=== PATIENT | male | born 1995 | race African-American/Black ===

== ENCOUNTER 2018-01-27 03:20 | Emergency (ER) | payer OTHER ==
[~2018-01-27] VITALS: Ht 172.7 cm; Wt 79.8 kg
[2018-01-27 03:20] VITALS: BP 119/60
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
== END 2018-01-27 03:55 | disposition home or self-care (01) ==
LOC: EDBD 03:20 → ER 03:20
DX: K60.2 Anal fissure, unspecified (principal); Z88.1 Allergy status to other antibiotic agents
CPT/HCPCS: 99283

== ENCOUNTER 2018-02-18 05:09 | Emergency (ER) | payer OTHER ==
[~2018-02-18] VITALS: Ht 172.7 cm; Wt 79.8 kg
[~2018-02-18 05:09] MED LIST: HYDR-79 PO; PRED20TA PO
[2018-02-18] MEDS ORDERED: HYDR-971 PO (05:45)
[2018-02-18] MEDS ORDERED: ACYC800T PO (05:45)
[2018-02-18] MEDS ORDERED: HYDR453.3 TP (05:46)
[2018-02-18] MEDS ORDERED: cefTRIAXone IM 250 MG VIAL IM ONE (06:00)
[2018-02-18] MEDS ORDERED: AZITHROMYCIN 250 MG TABLET. PO ONE (06:00)
--- NOTE | 2018-02-18 06:04 | ED.ADGEN ---
Past History Past Medical History: Bipolar, Schizophrenia Past Surgical History: No Surgical History Alcohol Use: Heavy Drug Use: None Adult General HPI HPI Patient is a 23 year old male who presents with possible STI. Patient is homosexual. He does partake and receptive anal intercourse. He presents to the ER today complaining of about 10-14 days of rectal pain. He was evaluated in this emergency department about 10 days earlier. He was diagnosed with a possible fissure. He was not treated for any infectious process at that time. Over the last week, he complains of persistent anal itching. He had onset of what he describes see very severe pain in the anal area over the last 24 hours. He also complains of some dysuria but no urethral discharge. Patient has not had a fever or chills. No nausea or vomiting. At last visit, he was referred to follow-up at [place] or at the health department but he has not done this. Review of Systems Review of Systems Constitutional: Denies fever or chills Eyes: Denies change in visual acuity, redness, or eye pain HENT: Denies nasal congestion or sore throat Respiratory: Denies cough or shortness of breath Cardiovascular: No additional information not addressed in HPI GI: Denies abdominal pain, nausea, vomiting, bloody stools or diarrhea : Denies dysuria or hematuria Musculoskeletal: Denies back pain or joint pain Integument: Denies rash or skin lesions Neurologic: Denies headache, focal weakness or sensory changes Endocrine: Denies polyuria or polydipsia All other systems were reviewed and found to be within normal limits, except as documented in this note. Current Medications Current Medications Current Medications Medications (Trade) Dose Ordered Sig/Angelica Start Time Stop Time Status Last Admin Dose Admin Azithromycin (Zithromax) 1,000 mg 1X ONCE 02/18/18 06:00 02/18/18 06:01 Ceftriaxone Sodium (Rocephin Im) 250 mg 1X ONCE 02/18/18 06:00 02/18/18 06:01 Allergies Allergies Allergies Coded Allergies Type Severity Reaction Last Updated Verified amoxicillin Allergy Unknown 01/27/18 Yes Physical Exam Physical Exam Constitutional: Well developed, well nourished, no acute distress, non-toxic appearance. HENT: Normocephalic, atraumatic, bilateral external ears normal, oropharynx moist Eyes: PERRLA, EOMI, conjunctiva normal Neck: Normal range of motion, no tenderness Lungs & Thorax: normal respiratory effort Abdomen: Bowel sounds normal, soft, no tenderness Skin: Warm, dry, no erythema, no rash. Extremities: normal ROM Neurologic: Alert and oriented X 3 Psychologic: Affect normal Exam of anus. Over the posterior aspect of the anus just inside at the midline is an area of excoriated skin with multiple clustered lesions that appear vesicular. There is a small fissure at the midline less than 0.5 cm that extends into the immediate subcutaneous tissue but no further. Current Patient Data Vital Signs Vital Signs Date Time Temp Pulse Resp B/P (MAP) Pulse Ox O2 Delivery O2 Flow Rate FiO2 02/18/18 05:40 98.8 82 18 99 Room Air EKG EKG [] Radiology/Procedures Radiology/Procedures [] Course & Med Decision Making Course & Med Decision Making Pertinent Labs and Imaging studies reviewed. (See chart for details) Patient is seen and examined in the emergency department. He has findings on his physical exam that are suspicious for herpes infection at the anus as well as a very small fissure. The patient has not been treated for sexually transmitted disease since onset of symptoms. This morning, we did collect a specimen for viral culture as well as gonorrhea and chlamydia. This was sent to the lab. The patient is empirically treated today with a gram of azithromycin and 250 mg of Rocephin IM. He is given a prescription for acyclovir for empiric treatment. He is provided some [place] for severe pain. He is also given a prescription for hydrocortisone cream to apply to the area. He is advised to refrain from sexual intercourse and to follow-up at [facility] or the health department for further testing and workup. Final Impression Final Impression Anal fissure Anal herpes infection Sexually transmitted disease Dragon Disclaimer Dragon Disclaimer This electronic medical record was generated, in whole or in part, using a voice recognition dictation system. NICOLE GRANADOS DO February 18, 2018 06:04
[2018-02-18 06:40] VITALS: BP 125/82
[2018-02-19 13:13] LABS: CHLAMYDIA PROBE Negative (Negative)
== END 2018-02-18 06:30 | disposition home or self-care (01) ==
LOC: ER 05:09
DX: K60.2 Anal fissure, unspecified (principal); B00.89 Other herpesviral infection; A64 Unspecified sexually transmitted disease; F10.20 Alcohol dependence, uncomplicated
CPT/HCPCS: 36415; 87491; 87591; 96372; 99284; J0456; J0696

== ENCOUNTER 2018-12-14 12:56 | Emergency (ER) | payer SELFPAY ==
[~2018-12-14] VITALS: Ht 172.7 cm; Wt 70.2 kg
[~2018-12-14 12:56] MED LIST changes: +ACYC800T PO; +HYDR-1179 PO; +HYDR-3165 PO; -HYDR-79 PO; +HYDR453.3 TP
[2018-12-14 14:13] LABS: BACTERIA,URINE 0 /HPF (0-FEW); BILIRUBIN,URINE NEG (NEG); CLARITY,URINE HAZY; COLOR,URINE AMBER; GLUCOSE,URINE NEG (NEG); NITRITE,URINE NEG (NEG); SQUAMOUS EPITHELIAL CELL,UR FEW /LPF; UROBILINOGEN,URINE 1 mg/dL (0.2 mg/dL); WBC,URINE RARE /HPF (0-4)
--- NOTE | 2018-12-14 14:30 | PHYS DOC ---
Past History Past Medical History: Asthma, Bipolar, Schizophrenia Past Surgical History: No Surgical History Alcohol Use: Rarely Drug Use: Marijuana Adult General Chief Complaint Chief Complaint: BLOOD IN URINE [facility] HPI Patient is a 23 year old male who presents with weighing of bloody urine. Patient complaining of one episode of bright red blood in his urination prior to arrival to ER. Patient denies abdominal pain, flank pain, penile discharge or concern for STD, recent injury, history of the same problem. Patient is homosexual with anal intercourse few days ago. Review of Systems Review of Systems Constitutional: Denies fever or chills [] Eyes: Denies change in visual acuity, redness, or eye pain [] HENT: Denies nasal congestion or sore throat [] Respiratory: Denies cough or shortness of breath [] Cardiovascular: No additional information not addressed in HPI [] GI: Denies abdominal pain, nausea, vomiting, bloody stools or diarrhea [] : Denies dysuria , reports hematuria [] Musculoskeletal: Denies back pain or joint pain [] Integument: Denies rash or skin lesions [] Neurologic: Denies headache, focal weakness or sensory changes [] Endocrine: Denies polyuria or polydipsia [] All other systems were reviewed and found to be within normal limits, except as documented in this note. Allergies Allergies Allergies Coded Allergies Type Severity Reaction Last Updated Verified amoxicillin Allergy Unknown 12/14/18 Yes Physical Exam Physical Exam Constitutional: Well developed, well nourished, no acute distress, non-toxic appearance. [] HENT: Normocephalic, atraumatic, bilateral external ears normal, oropharynx moist, no oral exudates, nose normal. [] Eyes: PERRLA, EOMI, conjunctiva normal, no discharge. [] Neck: Normal range of motion, no tenderness, supple, no stridor. [] Cardiovascular:Heart rate regular rhythm, no murmur [] Lungs & Thorax: Bilateral breath sounds clear to auscultation [] Abdomen: Bowel sounds normal, soft, no tenderness, no masses, no pulsatile masses. Genital exam with present of portable canteen operator did not show any abnormality. Skin: Warm, dry, no erythema, no rash. [] Back: No tenderness, no CVA tenderness. [] Extremities: No tenderness, no cyanosis, no clubbing, ROM intact, no edema. [] Neurologic: Alert and oriented X 3, normal motor function, normal sensory function, no focal deficits noted. [] Psychologic: Affect anxious,, mood normal. [] Current Patient Data Vital Signs Vital Signs Date Time Temp Pulse Resp B/P (MAP) Pulse Ox O2 Delivery O2 Flow Rate FiO2 12/14/18 13:07 98.7 82 18 98 Room Air Lab Results Laboratory Tests Test 12/14/18 13:34 Urine Collection Type Void Urine Color Adelina Urine Clarity Hazy Urine pH 6.5 Urine Specific [place] 1.020 Urine Protein Neg (NEG-TRACE) Urine Glucose (UA) Neg mg/dL (NEG) Urine Ketones (Stick) 15 mg/dL (NEG) Urine Blood Trace (NEG) Urine Nitrite Neg (NEG) Urine Bilirubin Neg (NEG) Urine Urobilinogen Dipstick 1 mg/dL (0.2 mg/dL) Urine Leukocyte Esterase Neg (NEG) Urine RBC 1-2 /HPF (0-2) Urine WBC Rare /HPF (0-4) Urine Squamous Epithelial Cells Few /LPF Urine Bacteria 0 /HPF (0-FEW) EKG EKG [] Radiology/Procedures Radiology/Procedures [] Course & Med Decision Making Course & Med Decision Making Pertinent Labs reviewed. (See chart for details) discharge: I've spoken with the patient and/or caregivers. I've explained the patient's condition, diagnosis and treatment plan based on information available to me at this time. I've answered the patient's and/or caregivers questions and addressed any concerns. The patient and/or caregivers have a good understanding the patient's diagnosis, condition and treatment plan as can be expected at this point. Vital signs have been stabilized. The patient's condition is stable for discharge from the emergency department. The patient will pursue further outpatient evaluation with her primary care provider or other designated consulting physician as outlined in the discharge instructions. Patient and/or caregivers are agreeable to this plan of care and follow-up instructions have been explained in detail. The patient and/or caregivers have received these instructions in written format and expressed understanding of these discharge instructions. The patient and her caregivers are aware that if any significant change in condition or worsening of symptoms should prompt him to immediately return to this of the closest emergency department. If an emergent department is not readily available I would encourage him to call 911. Leela Disclaimer Leela Disclaimer This electronic medical record was generated, in whole or in part, using a voice recognition dictation system. Departure Departure: Impression: Primary Impression: Feared condition not demonstrated Disposition: HOME, SELF-CARE (@1429) Condition: STABLE Referrals: PCP,NIKKO (PCP) Patient Instructions: Hematuria, Adult Additional Instructions: Drink plenty of liquids Follow-up with your primary care physician in 3-5 days Return to ER if not getting better YASMIN HINTON MD Dec 14, 2018 14:30
[2018-12-14 14:57] VITALS: BP 115/60
== END 2018-12-14 14:57 | disposition home or self-care (01) ==
LOC: ER 12:56
DX: R31.9 Hematuria, unspecified (principal); Z71.1 Person with feared health complaint in whom no diagnosis is made; J45.909 Unspecified asthma, uncomplicated; F31.9 Bipolar disorder, unspecified; F20.9 Schizophrenia, unspecified; Z88.1 Allergy status to other antibiotic agents
CPT/HCPCS: 81001; 99283

== ENCOUNTER 2019-08-27 11:19 | Emergency (ER) | payer SELFPAY ==
[~2019-08-27] VITALS: Ht 180.3 cm; Wt 69.9 kg
[2019-08-27 11:25] VITALS: BP 147/67
--- NOTE | 2019-08-27 11:59 | PHYS DOC ---
Past History Past Medical History: Asthma, Bipolar, Schizophrenia Past Surgical History: No Surgical History Alcohol Use: Rarely Drug Use: Marijuana Adult General Chief Complaint Chief Complaint: SUICIDAL IDEATION HPI HPI Patient is a 24-year-old male who self presented to the emergency room saying that he wanted to jump into the river to commit suicide but he instead came here for evaluation does have a prior history of depression off meds for 2 years kathy blanco with a long-term long distance relationship which is stressful does medicate with marijuana has had a history of cutting in the past has cuts very superficially recently. Denies any overdose Review of Systems Review of Systems Constitutional: Denies fever or chills [] Eyes: Denies change in visual acuity, redness, or eye pain [] HENT: Denies nasal congestion or sore throat [] Neurologic: Denies headache, focal weakness or sensory changes [] Endocrine: Denies polyuria or polydipsia [] All other systems were reviewed and found to be within normal limits, except as documented in this note. Allergies Allergies Allergies Coded Allergies Type Severity Reaction Last Updated Verified amoxicillin Allergy Unknown 12/14/18 Yes Physical Exam Physical Exam Constitutional: Well developed, well nourished, no acute distress, non-toxic appearance. [] HENT: Normocephalic, atraumatic, bilateral external ears normal, oropharynx moist, no oral exudates, nose normal. [] Eyes: PERRLA, EOMI, conjunctiva normal, no discharge. [] Neck: Normal range of motion, no tenderness, supple, no stridor. [] Cardiovascular:Heart rate regular rhythm, no murmur [] Lungs & Thorax: Bilateral breath sounds clear to auscultation [] Abdomen: Bowel sounds normal, soft, no tenderness, no masses, no pulsatile masses. [] Skin: Very superficial mostly healed cuts on the left forearm Back: No tenderness, no CVA tenderness. [] Extremities: No tenderness, no cyanosis, no clubbing, ROM intact, no edema. [] Neurologic: Alert and oriented X 3, normal motor function, normal sensory function, no focal deficits noted. [] Psychologic: Blunted withdrawn affect and mood is depressed report suicidal ideation Current Patient Data Vital Signs * 98.4 degrees F (97.6-99.5) Patient Temperature * 98.4 degrees F (97.5-99.5) Temperature Source * Oral Blood Pressure Systolic * 147 mm Hg (100-140) H Blood Pressure Diastolic * 67 mm Hg (60-100) Blood Pressure Mean * 93 mm Hg Blood Pressure Location * Right Arm Blood Pressure Source * Automatic Cuff Pulse Rate * 54 beats per minute (60-90) L Pulse Assessment Method * Monitor Respiratory Rate * 20 breaths per minute (12-24) Oxygen Delivery Method * Room Air Bedside Pulse Oximetry * 98 % Treatment Prior to Arrival EKG EKG [] Radiology/Procedures Radiology/Procedures [] Course & Med Decision Making Course & Med Decision Making Pertinent Labs and Imaging studies reviewed. (See chart for details) []24-year-old male presenting with suicidal ideation patient is medically cleared at this time awaiting placement accepted to [facility] Disclaimer [facility] Disclaimer This electronic medical record was generated, in whole or in part, using a voice recognition dictation system. Departure Departure: Impression: Primary Impression: Suicidal ideation Disposition: 65 XFER TO PSYCH HOSP/UNIT Condition: STABLE Referrals: PCP,NO (PCP) DEE DEE UGALDE MD Aug 27, 2019 11:59
[2019-08-27 12:08] LABS: BASO % 1 % (0-3); EOS # 0.1 x10^3/uL (0.0-0.7); EOS % 2 % (0-3); HEMATOCRIT 41.6 % (39.0-53.0); HEMOGLOBIN 13.9 g/dL (13.0-17.5); LYMPH # 1.5 x10^3/uL (1.0-4.8); LYMPH % 34 % (24-48); MEAN CORPUSCULAR HEMOGLOBIN 30 pg (25-35); MEAN CORPUSCULAR HGB CONC 34 g/dL (31-37); MEAN CORPUSCULAR VOLUME 91 fL (79-100); MONO # 0.5 x10^3/uL (0.0-1.1); MONO % 11 % (0-9); NEUT # 2.2 x10^3uL (1.8-7.7); NEUT % 51 % (31-73); PLATELET COUNT 202 x10^3/uL (140-400); RED BLOOD COUNT 4.58 x10^6/uL (4.30-5.70); RED CELL DISTRIBUTION WIDTH 13.5 % (11.5-14.5); WHITE BLOOD COUNT 4.4 x10^3/uL (4.0-11.0)
[2019-08-27 12:13] LABS: AMPHETAMINE/METHAMPHETAMINE NEG (NEG); BARBITURATES NEG (NEG); BENZODIAZEPINES NEG (NEG); CANNABINOIDS POS (NEG); COCAINE POS (NEG); METHADONE NEG (NEG); OPIATES NEG (NEG); PHENCYCLIDINE NEG (NEG)
[2019-08-27 12:29] LABS: ACETAMIN < 2.0 mcg/mL (10-30); ETHANOL < 10 mg/dL (0-10); SALIC 1.9 mg/dL (2.8-20.0)
[2019-08-27 12:30] LABS: ALBUMIN 3.8 g/dL (3.4-5.0); ALBUMIN/GLOBULIN RATIO 1.1 (1.0-1.7); CALCIUM 8.8 mg/dL (8.5-10.1); CREATININE 0.9 mg/dL (0.7-1.3); GFR 127.7; POTASSIUM 3.9 mmol/L (3.5-5.1); TOTAL BILIRUBIN 0.3 mg/dL (0.2-1.0); TOTAL PROTEIN 7.3 g/dL (6.4-8.2)
[2019-08-27] MEDS ORDERED: ALBUTEROL SULFATE 2.5 MG/3 ML NEBU. ONE (18:13)
== END 2019-08-27 18:40 | disposition home or self-care (01) ==
LOC: ER 11:19
DX: R45.851 Suicidal ideations (principal); F31.9 Bipolar disorder, unspecified; J45.909 Unspecified asthma, uncomplicated; F20.9 Schizophrenia, unspecified; Z91.5 Personal history of self-harm; Z88.1 Allergy status to other antibiotic agents
CPT/HCPCS: 36415; 80053; 80307; 80329; 85025; 99285; G0480; 82003

== ENCOUNTER 2021-01-13 12:32 | Emergency (ER) | payer OTHER ==
[~2021-01-13] VITALS: Ht 180.3 cm; Wt 68.7 kg
[~2021-01-13 12:32] MED LIST changes: -ACYC800T PO; +ACYC800T88 PO
[2021-01-13 13:29] LABS: BASO % 1 % (0-3); EOS # 0.1 x10^3/uL (0.0-0.7); EOS % 2 % (0-3); HEMATOCRIT 43.2 % (39.0-53.0); HEMOGLOBIN 14.4 g/dL (13.0-17.5); LYMPH # 1.2 x10^3/uL (1.0-4.8); LYMPH % 25 % (24-48); MEAN CORPUSCULAR HEMOGLOBIN 31 pg (25-35); MEAN CORPUSCULAR HGB CONC 33 g/dL (31-37); MEAN CORPUSCULAR VOLUME 92 fL (79-100); MONO # 0.6 x10^3/uL (0.0-1.1); MONO % 12 % (0-9); NEUT # 2.9 x10^3uL (1.8-7.7); NEUT % 60 % (31-73); PLATELET COUNT 217 x10^3/uL (140-400); RED BLOOD COUNT 4.72 x10^6/uL (4.30-5.70); WHITE BLOOD COUNT 4.9 x10^3/uL (4.0-11.0)
[2021-01-13 13:35] LABS: CALCIUM 9.1 mg/dL (8.5-10.1); CREATININE 0.9 mg/dL (0.7-1.3); GFR 126.5; POTASSIUM 3.8 mmol/L (3.5-5.1)
--- NOTE | 2021-01-13 13:38 | PHYS DOC ---
Past History Past Medical History: Anxiety, Asthma, Bipolar, Schizophrenia Past Surgical History: No Surgical History Alcohol Use: Rarely Drug Use: Marijuana Adult General Chief Complaint Chief Complaint: SUICIDAL IDEATION [facility] Patient is a 25-year-old male who presents to the emergency room complaining of suicidal ideations. Patient has a history of schizoaffective disorder. He has not been treated since 2019. He states that at that time he went to [facility] and when he followed up at the [facility] they try to give him an injection of medicine that was not the same as he was getting at [facility]. He then never went back to the [facility]. He states that he intermittently hears voices typically when he is not in a very good mood. He started having suicidal thoughts earlier today so he came to the emergency room. Patient states that he does have a knife that he has thought about using and he is thought of multiple other ways to kill himself. He states that he is tired of being abnormal and just wants to go back to normal life. Review of Systems Review of Systems Complete ROS is negative unless otherwise documented in HPI Allergies Allergies Allergies Coded Allergies Type Severity Reaction Last Updated Verified amoxicillin Allergy Unknown 12/14/18 Yes Physical Exam Physical Exam General: Awake, alert, NAD. Well Nourished, well hydrated. Cooperative HEENT: Atraumatic, EOMI, PERRL, airway patent, moist oral mucosa Neck: Supple, trachea midline Respiratory: CTA bilaterally, normal effort, no wheezing/crackles CV: RRR, no murmur, cap refill <2 GI: Soft, nondistended, nontender, no masses MSK: No obvious deformities Skin: Warm, dry, intact Neuro: A&O x3, speech NL, sensory and motor grossly intact, no focal deficits Psych: Flat affect, labile, suicidal ideations EKG EKG [] Radiology/Procedures Radiology/Procedures [] Heart Score C/O Chest Pain: N/A Risk Factors: Risk Factors: DM, Current or recent (<one month) smoker, HTN, HLP, family history of CAD, obesity. Risk Scores: Risk Factors: DM, Current or recent (<one month) smoker, HTN, HLP, family history of CAD, obesity. Course & Med Decision Making Course & Med Decision Making Pertinent Labs and Imaging studies reviewed. (See chart for details) Patient is a 25-year-old with a history of schizoaffective who presents to the Emergency Room with suicidal ideations. Upon arrival the the Emergency Room, patient was changed into a gown and personal belongings were taken to security for safety. Patient was placed on a one-on-one. Lab work was ordered if requested by psychiatric team. PAT team was consulted for evaluation. After discussion with PAT team the decision was made to pursue []. Dragon Disclaimer Dragon Disclaimer This electronic medical record was generated, in whole or in part, using a voice recognition dictation system. Departure Departure: Impression: Primary Impression: Suicidal ideation Additional Impression: Schizoaffective disorder Referrals: PCP,NO (PCP) Problem Qualifiers MARIEL RIVERA MD Jan 13, 2021 13:38
[2021-01-13 13:43] LABS: ALBUMIN 3.8 g/dL (3.4-5.0); TOTAL BILIRUBIN 0.4 mg/dL (0.2-1.0); TOTAL PROTEIN 7.6 g/dL (6.4-8.2)
[2021-01-13 16:43] LABS: AMPHETAMINE/METHAMPHETAMINE NEG (NEG); BARBITURATES NEG (NEG); BENZODIAZEPINES NEG (NEG); CANNABINOIDS POS (NEG); COCAINE NEG (NEG); METHADONE NEG (NEG); OPIATES NEG (NEG); PHENCYCLIDINE NEG (NEG)
[2021-01-13 16:45] LABS: CLARITY,URINE CLEAR; COLOR,URINE YELLOW
[2021-01-13 16:46] LABS: BACTERIA,URINE 0 /HPF (0-FEW); BILIRUBIN,URINE NEG (NEG); GLUCOSE,URINE NEG (NEG); NITRITE,URINE NEG (NEG); RBC,URINE 0 /HPF (0-2); SQUAMOUS EPITHELIAL CELL,UR OCC /LPF; WBC,URINE RARE /HPF (0-4)
[2021-01-13 20:01] VITALS: BP 130/74
== END 2021-01-13 20:20 ==
LOC: EEVIPCON 12:32 → ER 12:32
DX: R45.851 Suicidal ideations (principal); F20.9 Schizophrenia, unspecified; F31.9 Bipolar disorder, unspecified; F41.9 Anxiety disorder, unspecified; J45.909 Unspecified asthma, uncomplicated; Z20.822 Contact with and (suspected) exposure to COVID-19; Z88.1 Allergy status to other antibiotic agents
CPT/HCPCS: 36415; 80053; 80307; 81001; 85025; 87426; 99285; C9803; G0480; U0003